=== PATIENT | male | born 2005 | race Caucasian/White ===

== ENCOUNTER 2023-11-09 01:20 | Emergency (ER) | payer BC, SELFPAY ==
[2023-11-09 01:21] VITALS: BP 176/100
--- NOTE | 2023-11-09 02:13 | ED.GENMED ---
History of Present Illness
<CELINA Bennett - Last Filed: 11/09/23 02:23>
General
Chief Complaint: Chest Problem
Source: patient
Exam Limitations: none
Time Seen by Provider: 11/09/23 01:59
Nursing documentation reviewed up to this point in time: agreed with
Travel History
Have you had any contact with someone who has COVID-19?: No
Do you have any symptoms of coronavirus? Fever > 100 degrees, chills, cough, shortness of breath, sore throat, loss of taste or smell, muscle aches, or headache?: No
History of Present Illness
History of Present Illness:
patient is a 18 y/o male presenting with chest tightness x 1 week. Patient states that everynight for the last week he has feelings of left sided upper chest tightness that radiates down his left arm causing tingling in his 3rd and 4th digits.
patient admits that he usually will walk around or distract himself to help with the tightness and it will go away but that was not the case today. Patient admtis that during the episode he will have palpitations and increased breathing. Patient
denies diaphoresis, NOE, N/V/D/C, fever chills. Patient denies recent change in exercise or movement that may have caused this. Patient denies any current medications. patient denies any recent travel. Patient denies any tobacco or alcohol in the
last 48 hrs. BP on admission was 176/100.
Review of Systems
<CELINA Bennett - Last Filed: 11/09/23 02:23>
Review of Systems
All Other Systems: Not applicable
Constitutional: Reports no symptoms
EENT: Reports no symptoms
Respiratory: Reports trouble breathing
Cardiac: Reports chest pain and palpitations
ABD/GI: Reports no symptoms
: Reports no symptoms
Musculoskeletal: Reports no symptoms
Skin: Reports no symptoms
Neurological: Reports dizzy and other (tingling down left arm )
Endocrine: Reports no symptoms
Hematologic/Lymphatic: Reports no symptoms
Psychiatric: Reports no symptoms
Phy Exam
<CELINA Bennett - Last Filed: 11/09/23 02:23>
General Physical Exam
General Presentation: well appearing and no apparent distress
General Skin: warm and dry
General Habitus: normal
General Mental: alert
General Hydration: appears well hydrated
ENT Exam
ENT Exam: EOMI, pharynx normal, neck supple and normocephalic
Eye Exam
Eye Exam: PERRL, cornea clear and conjunctiva normal
Cardiovascular Exam
Cardiovascular Exam: other (chest tennderness to palpation )
Pulmonary Exam
Pulmonary Exam: lungs clear, no respiratory distress, no rales, no crackles, no rhonchi, no stridor, no wheezing and no cough
Gastrointestinal Exam
Gastrointestinal Exam: normal bowel sounds, non tender, soft, no organomegaly, no pulsatile mass and non distended
Neurological Exam
Neurological Exam: alert, oriented x3, no motor deficits and speech normal
Musculoskeletal Exam
Musculoskeletal Exam: full ROM and no edema
Skin Exam
Skin Exam: normal color, warm/dry, no rash and no petechia
Psychiatric Exam
Psychiatric Exam: normal mood/affect
Course
<CELINA Bennett - Last Filed: 11/09/23 02:23>
Orders/Labs/Results
Orders:
Orders
11/09/23 01:25
Electrocardiogram (*1) Urgent
Reason for Study: Chest Pain
EKG- Treatment ONCE
11/09/23 02:21
CR Chest - 2 Views Urgent
Comment:
Reason For Exam: LEFT SIDED CP x 1 week
11/09/23 02:52
Ibuprofen [Motrin] 800 mg PO NOW STA
Vital Signs
Initial and Last Documented VS:
Initial Vital Signs
Temp Pulse Resp BP Pulse Ox
98 F 110 24 176/100 98
11/09/23 01:21 11/09/23 01:21 11/09/23 01:21 11/09/23 01:21 11/09/23 01:21
Last Documented Vital Signs
Temp Pulse Resp BP Pulse Ox
98 F 117 24 159/94 98
11/09/23 01:21 11/09/23 02:17 11/09/23 02:17 11/09/23 02:17 11/09/23 02:17
<Lupis Lloyd DO - Last Filed: 11/09/23 03:06>
Orders/Labs/Results
Orders:
Orders
11/09/23 01:25
Electrocardiogram (*1) Urgent
Reason for Study: Chest Pain
EKG- Treatment ONCE
11/09/23 02:21
CR Chest - 2 Views Urgent
Comment:
Reason For Exam: LEFT SIDED CP x 1 week
11/09/23 02:52
Ibuprofen [Motrin] 800 mg PO NOW STA
Vital Signs
Initial and Last Documented VS:
Initial Vital Signs
Temp Pulse Resp BP Pulse Ox
98 F 110 24 176/100 98
11/09/23 01:21 11/09/23 01:21 11/09/23 01:21 11/09/23 01:21 11/09/23 01:21
Last Documented Vital Signs
Temp Pulse Resp BP Pulse Ox
98 F 117 24 159/94 98
11/09/23 01:21 11/09/23 02:17 11/09/23 02:17 11/09/23 02:17 11/09/23 02:17
<CELINA Bennett - Last Filed: 11/09/23 02:23>
MDM/Problems Addressed
Differential Diagnosis Includes:
PE
anxiety attack
musculoskeletal pain
MDM/Problems Addressed:
chest tightness
<CELINA Bennett - Last Filed: 11/09/23 02:23>
*Critical Care Note
Total Time (30-74mins, 75-104mins- exclusive of procedures): Not Applicable
<Lupis Lloyd DO - Last Filed: 11/09/23 03:06>
*Radiology
Radiology exam reviewed: preliminary read by ED provider (Chest x-ray is unremarkable.)
*Pulse Oximetry
Patient hypoxic: no
*EKG
Interpreted by ED Provider?: Yes
Interpretation: normal
Comparison EKG: no comparison EKG present
Rate: normal
Rhythm: sinus
Porter: normal axis
Interval: normal interval
QRS Pattern: normal QRS
Ischemia: no ischemia
*Housekeeper Caregiver Interpretation
Rate: normal
Interpretation: normal
Rhythm: sinus
ED Attending Note
<CELINA Bennett - Last Filed: 11/09/23 02:23>
-
Portions of this chart may have been created with voice recognition software.� Occasional wrong word or��sound alike� substitutions may have occurred due to the inherent limitations of voice recognition software.
<Lupis Lloyd DO - Last Filed: 11/09/23 03:06>
ED Attending Note
Patient seen and examined by attending physician: Yes
I performed the substantive portion of visit, reviewed & personally made and approve the management plan that is documented in note by myself or JONATHAN.: Yes
I performed a history and physical exam of patient and discussed management with resident, I reviewed resident's note and agree with documented findings and plan of care.: Yes
ED Attending Note:
This is a 18-year-old male who has history of anxiety, Tourette's syndrome who complains of 1 week history of left upper chest pain that is only noted at nighttime after lying down to bed. Left upper chest pain generally resolves when he gets up
and moves about and is not noted during the day. He does admit to significant worry when chest pain occurs and occasionally notes some tingling of his left arm but no weakness, no cough no shortness of breath, no nausea nor vomiting. He has not
taken anything for discomfort. He denies heavy lifting or injury. No history of similar episodes in the past.
He takes no medicines on a daily basis.
No alcohol nor drug use. Lifelong non-smoker.
GENERAL: 18-year-old overweight male appears his stated age, bright and alert, pleasant, appears in no acute distress. Father is accompanying.
EYE: anicteric
NECK: Supple, nontender, no meningismus, no significant adenopathy.
ENT: oral mucosa is moist. No rhinorrhea.
CARDIAC: Regular rate and rhythm. no murmur.
LUNGS: Clear breath sounds bilaterally, no acute respiratory distress, no wheezes/rales/rhonchi. Mild tenderness left upper chest wall with palpation. Palpation seems to exactly reproduce patient's pain complaint.
ABDOMEN: Rotund, soft, nondistended, without focal tenderness, normoactive BS.
NEUROLOGICAL: Alert and oriented x3, no focal neuro deficits. Gait is davison and steady.
SKIN: Warm and dry, normal color, skin intact. No rash.
MUSCULOSKELETAL: No C/C/E. peripheral pulses are full and equal b/l. No palpable tenderness.
PSYCH: Normal and appropriate interaction.
18-year-old male presents with 1 week history of nocturnal left upper chest pain.
Concern for musculoskeletal pain, GERD, less likely pneumonia, pneumothorax. ACS is unlikely.
EKG shows normal sinus rhythm, normal axis, normal intervals, no acute ST-T wave abnormalities. No old EKGs to compare.
Will check chest x-ray and if unremarkable will give a dose of ibuprofen for what I suspect is musculoskeletal pain.
Exam remarkable for reproducible tenderness over the left lateral pectoralis muscle.
No significant associated symptoms. He is noted to have mild tachycardia as well as hypertension initially which promptly resolved/improve after initial exam and with reassurance.
I suspect the significant underlying anxiety component which patient readily acknowledges.
11/09/2023 0302 AM
Chest x-ray is unremarkable.
Will give ibuprofen for musculoskeletal chest wall pain.
Recommend supportive measures, local warm compresses along with prompt follow-up with PCP for recheck.
Return precautions discussed.
Discharge Plan
Departure
Patient Disposition: Home (Routine Discharge)
Date of Disposition: 11/09/23
Time of Disposition: 03:03
Patient with high blood pressure during this ER visit?: Yes
Condition: Good
Discharge Problem:
Left upper chest wall pain
Instructions: Chest Pain That Is Not Caused by the Heart (DC), BLOOD PRESSURE
Prescriptions:
No Action
No Current Medications
0
Referrals:
Linden Zamora MD [Family Provider] - Call in 1-3 days for appt
Interventions
Interventions:
*Risk Screen - Suicide Last Done: 11/09/23 01:21
*General Assessment Last Done: 11/09/23 02:16
*Neglect/Abuse Screening Last Done: 11/09/23 01:21
*ED COVID-19 Vaccine History Last Done: 11/09/23 02:16
ED- Cardiac Assessment Last Done: 11/09/23 02:21
ED- Pulmonary Assessment Last Done: 11/09/23 02:21
[2023-11-09 02:16] VITALS: BMI 40.3
[2023-11-09 02:17] VITALS: BP 159/94
[2023-11-09] MEDS: MOTRIN 800 MG PO (02:55)
[2023-11-09 03:00] VITALS: BP 143/74
== END 2023-11-09 04:00 | disposition home or self-care (01) ==
LOC: EMR 01:20
PROVIDERS: EMERGENCY PHYSICIAN Emergency Medicine; FAMILY PHYSICIAN Family Medicine
DX: R07.89 Other chest pain (principal); R20.2 Paresthesia of skin; R42 Dizziness and giddiness; R00.2 Palpitations; R00.0 Tachycardia, unspecified; I10 Essential (primary) hypertension; F95.2 Tourette's disorder; F41.9 Anxiety disorder, unspecified; Z88.1 Allergy status to other antibiotic agents
CPT/HCPCS: 99283; 71046; 93005